=== PATIENT | female | born 1955 | race Hispanic/Latino ===

== ENCOUNTER 2021-09-08 12:50 | Inpatient (IN) | payer MEDICARE, SELFPAY ==
[~2021-09-08 12:50] MED LIST: Iopamidol-370 76% 500 ML 1 ML ONE
[2021-09-08 13:18] LABS: #Eosinphils 0.1 thou/uL (0.0-0.7); #Lymphocytes 2.4 thou/uL (1.20-3.40); #Monocytes 0.4 thou/uL (0.11-0.59); #Neutrophils 4.2 thou/uL (1.40-6.50); %Basophils 0.3 % (0.0-1.0); %Eosinophils 2.1 % (0.0-10.0); %Lymphocytes 33.1 % (21.0-51.0); %Monocytes 5.9 % (0.0-10.0); %Neutrophils 58.6 % (42.0-75.0); Hemoglobin 14.9 g/dL (12.0-16.0); Mean Corpuscular HGB CONC 31.8 g/dL (32.0-36.0); Mean Corpuscular Hemoglobin 27.2 pg (27.0-31.0); Mean Corpuscular Volume 85.7 fL (78.0-98.0); Mean Platelet Volume 8.9 fL (7.4-10.4); Platelet Count 198 thou/uL (130-400); RBC Distribution Width 12.3 % (11.5-14.5); Red Blood Cell (RBC) Count 5.45 mill/uL (4.20-5.40); White Blood Cell (WBC) Count 7.2 thou/uL (4.8-10.8)
[2021-09-08] MEDS ORDERED: niCARdipine 25 MG/10 ML VIAL ONE (13:23)
[2021-09-08 13:32] LABS: INR-International Normal Ratio 0.9; Prothrombin Time 12.1 sec (12.0-14.7)
[2021-09-08 13:33] LABS: PTT 28.1 sec (22.9-36.1)
[2021-09-08 13:47] LABS: ALT (SGPT) 100 U/L (8-55); AST (SGOT) 48 U/L (5-34); Albumin 4.1 g/dL (3.4-4.8); Alkaline Phosphatase 109 U/L (40-110); Anion Gap 18 mmol/L (10-20); BUN (Urea Nitrogen) 12 mg/dL (9.8-20.1); Bilirubin, Total 0.4 mg/dL (0.2-1.2); Calc. Creatinine Clearance 0 mL/min (70-130); Calcium 9.7 mg/dL (7.8-10.44); Carbon Dioxide 18 mmol/L (23-31); Chloride 103 mmol/L (98-107); Globulin 3.3 g/dL (2.4-3.5); Potassium 4.1 mmol/L (3.5-5.1); Protein, Total 7.4 g/dL (5.8-8.1); Sodium 135 mmol/L (136-145)
[2021-09-08] MEDS ORDERED: TPA Communication Order-Pharmacy FS SCH (14:08)
[2021-09-08] MEDS ORDERED: Labetalol HCl 100 MG/20 ML VIAL SLOW IVP PRN (14:08)
[2021-09-08] MEDS ORDERED: Dextrose 50% Abboject 50 ML SYRINGE SLOW IVP PRN (14:08)
[2021-09-08] MEDS ORDERED: Dextrose 5% in Water 1,000 ML IV PRN (14:08)
[2021-09-08] MEDS ORDERED: niCARdipine 25 MG in Sodium Chloride 0.9% 250 ML 250 ML IVPB PRN (14:08)
[2021-09-08] MEDS ORDERED: hydrALAZINE 20 MG/ML VIAL SLOW IVP PRN (14:08)
[2021-09-08 14:24] LABS: Glucose 567 mg/dL (80-115)
[2021-09-08 15:49] LABS: SARS-CoV-2 NAA Rapid Test Not Detected (NotDetected)
[2021-09-08 17:18] VITALS: BMI 30.2
[2021-09-08] MEDS: Acetaminophen 325 MG TAB PO PRN (19:12)
[2021-09-08] MEDS: HumaLOG 300 UNITS/3 ML VIAL SC PRN (20:07)
[2021-09-08] MEDS: Atorvastatin Calcium 40 MG TAB PO SCH (20:07)
[2021-09-09] MEDS: HumaLOG 300 UNITS/3 ML VIAL SC PRN ×4 (00:52→16:28)
[2021-09-09] MEDS: Sodium Chloride 0.9% 1,000 ML IV SCH ×2 (09:08→16:28)
[2021-09-09] MEDS: Insulin Glargine 30 UNITS/0.3 ML VIAL SC SCH ×2 (09:17→20:59)
[2021-09-09] MEDS: Aspirin 325 mg Enteric Coated Tablet PO SCH ×2 (20:58→21:06)
[2021-09-09] MEDS: Atorvastatin Calcium 40 MG TAB PO SCH (20:58)
[2021-09-09] MEDS ORDERED: Enoxaparin Sodium 40 MG/0.4 ML SYRINGE SC SCH (21:00)
[2021-09-10] MEDS: HumaLOG 300 UNITS/3 ML VIAL SC PRN ×4 (00:25→17:08)
[2021-09-10 04:23] LABS: Anion Gap 10 mmol/L (10-20); BUN (Urea Nitrogen) 12 mg/dL (9.8-20.1); Calc. Creatinine Clearance 89 mL/min (70-130); Calcium 8.5 mg/dL (7.8-10.44); Carbon Dioxide 20 mmol/L (23-31); Chloride 112 mmol/L (98-107); Glucose 135 mg/dL (80-115); Potassium 3.3 mmol/L (3.5-5.1); Sodium 139 mmol/L (136-145)
[2021-09-10] MEDS: Acetaminophen 325 MG TAB PO PRN (08:02)
[2021-09-10] MEDS: Insulin Glargine 30 UNITS/0.3 ML VIAL SC SCH (09:57)
[2021-09-10] MEDS ORDERED: Potassium Chloride 20 MEQ TAB PO SCH (11:00)
[2021-09-10 11:38] VITALS: BP 150/95
[2021-09-10 16:32] VITALS: TEMP 98
== END 2021-09-10 17:30 | disposition home or self-care (01) | DRG 62 ==
LOC: ERS 12:50 → ERHOLD 14:06 → CCU 16:52
PROVIDERS: ADMIT Internal Medicine; ATTEND Internal Medicine
DX: I63.81 Other cerebral infarction due to occlusion or stenosis of small artery (principal); G81.91 Hemiplegia, unspecified affecting right dominant side; E11.00 Type 2 diabetes mellitus with hyperosmolarity without nonketotic hyperglycemic-hyperosmolar coma (NKHHC); Z20.822 Contact with and (suspected) exposure to COVID-19; R47.01 Aphasia; R29.705 NIHSS score 5; I10 Essential (primary) hypertension; R29.810 Facial weakness; R47.1 Dysarthria and anarthria; R20.0 Anesthesia of skin; E78.5 Hyperlipidemia, unspecified; Z90.49 Acquired absence of other specified parts of digestive tract; Z88.8 Allergy status to other drugs, medicaments and biological substances
CPT/HCPCS: 36416; 37195; 70450; 70496; 70498; 70551; 71045; 74230; 80048; 80053; 82010; 84484; 85025; 85610; 85730; 93005; 93010; 93306; 94760; 96365; 96366; J1650; J1815; J2997; J7050; Q9967; U0002

== ENCOUNTER 2024-04-23 08:47 | Outpatient (CLI) | payer MEDICARE | END 2024-04-23 08:48 | disposition home or self-care (01) | LOC: BICMAMMO 08:47 | PROVIDERS: ATTEND Family Medicine | DX: Z78.0 Asymptomatic menopausal state (principal); M81.0 Age-related osteoporosis without current pathological fracture; M85.851 Other specified disorders of bone density and structure, right thigh; M85.852 Other specified disorders of bone density and structure, left thigh | CPT/HCPCS: 77080 ==

== ENCOUNTER 2025-03-08 09:32 | Outpatient (CLI) | payer MEDICARE | END 2025-03-08 09:33 | disposition home or self-care (01) | LOC: BICRAD 09:32 | PROVIDERS: ATTEND Family Medicine | DX: M25.552 Pain in left hip (principal); M25.512 Pain in left shoulder; M25.511 Pain in right shoulder ==

== ENCOUNTER 2025-03-17 09:07 | Emergency (ER) | payer MEDICARE, MEDICAID ==
[2025-03-17] MEDS ORDERED: Ketorolac Tromethamine 30 MG (1 mL) VIAL ONE (09:49)
[2025-03-17] MEDS ORDERED: HYDROcodone/Acetaminophen 5/325 mg Tablet ONE ×2 (09:50→09:59)
== END 2025-03-17 11:05 | disposition home or self-care (01) ==
LOC: ERS 09:07
DX: M25.552 Pain in left hip (principal); M65.252 Calcific tendinitis, left thigh; I10 Essential (primary) hypertension; E11.9 Type 2 diabetes mellitus without complications; M81.0 Age-related osteoporosis without current pathological fracture; Z86.73 Personal history of transient ischemic attack (TIA), and cerebral infarction without residual deficits; Z79.899 Other long term (current) drug therapy; Z79.84 Long term (current) use of oral hypoglycemic drugs; Z79.4 Long term (current) use of insulin; Z79.82 Long term (current) use of aspirin
CPT/HCPCS: 72170; 73502; J1885; 96372; 99283

== ENCOUNTER 2025-04-22 08:22 | Outpatient (CLI) | payer MEDICARE, MEDICAID | END 2025-04-22 08:23 | disposition home or self-care (01) | LOC: BICMRI 08:22 | PROVIDERS: ATTEND Student in an Organized Health Care Education/Training Program | DX: M84.353A Stress fracture, unspecified femur, initial encounter for fracture (principal); C76.3 Malignant neoplasm of pelvis | CPT/HCPCS: 72195 ==